=== PATIENT | female | born 1970 | race Two or more races ===

== ENCOUNTER 2019-06-27 10:57 | Emergency (ER) | payer MEDICAID ==
[~2019-06-27] VITALS: Ht 167.6 cm; Wt 54.4 kg
[2019-06-27 11:12] VITALS: BP 143/93; Ht 167.6 cm; Wt 54.4 kg
== END 2019-06-27 14:51 | disposition home or self-care (01) ==
LOC: ED 10:57
DX: F41.9 Anxiety disorder, unspecified (principal); F32.9 Major depressive disorder, single episode, unspecified; Z76.0 Encounter for issue of repeat prescription